=== PATIENT | female | born 1930 | race Caucasian/White ===

== ENCOUNTER 2018-02-25 16:23 | Inpatient (IN) | payer MEDICARE ==
[~2018-02-25] VITALS: Ht 165.1 cm; Wt 58.8 kg
[~2018-02-25 16:23] MED LIST: ALEN70TA47 PO; ASPI-1005 PO; CALC1TAB15 PO; CHOL400T33 PO; LEVO125T11 PO; LEVO500T2 PO; PANT20TA12 PO; SOLI5 PO
[2018-02-25 16:48] LABS: BASOPHILS % (AUTO) 0.7 % (0.0-5.0); EOSINOPHILS % (AUTO) 0.5 % (0.0-8.0); HEMATOCRIT 40.2 % (36-48); LYMPHOCYTES % (AUTO) 13.5 % (21.0-51.0); MEAN CORPUSCULAR HEMOGLOBIN 24.6 pg (27.0-33.0); MEAN CORPUSCULAR HGB CONC 30.6 g/dL (32.0-36.0); MEAN CORPUSCULAR VOLUME 80.2 fL (79-99); MONOCYTES % (AUTO) 8.8 % (3.0-13.0); NEUTROPHILS % (AUTO) 76.5 % (40.0-77.0); NUCLEATED RED BLOOD CELLS 0.1 % (0.0-0.19); PLATELET COUNT (AUTO) 295 K/uL (130-400); RED BLOOD CELL COUNT(AUTO) 5.01 MIL/uL (4.00-5.50); RED CELL DISTRIBUTION WIDTH 18.9 % (11.0-15.5); WHITE BLOOD COUNT (AUTO) 11.1 K/uL (4.8-10.8)
[2018-02-25] MEDS ORDERED: SODIUM CHLORIDE 0.9% 100 ML IV ONE (16:51)
[2018-02-25] MEDS ORDERED: AMIODARONE HCL 50 MG/ML 3 ML VIAL ONE (16:51)
[2018-02-25] MEDS ORDERED: SODIUM CHLORIDE 0.9% 500ML 500 ML IV ONE (16:51)
[2018-02-25 16:58] LABS: CREATININE 1.6 mg/dL (0.5-1.5); POTASSIUM 3.6 mmol/L (3.5-5.1)
[2018-02-25 17:01] LABS: INR 1.23 (0.85-1.15); PARTIAL THROMBOPLASTIN TIME 31.7 SEC (26.3-35.5); PROTHROMBIN TIME 12.9 SEC (9.6-11.6)
[2018-02-25 17:12] LABS: ALBUMIN 2.4 g/dL (3.5-5.0); BILIRUBIN,TOTAL 0.6 mg/dL (0.2-1.0); CREATINE KINASE MB 0.9 ng/mL (0.5-3.6); TOTAL PROTEIN, SERUM 6.6 g/dL (6.0-8.3)
[2018-02-25 17:45] LABS: APPEARANCE,URINE CLEAR (CLEAR); BILIRUBIN,URINE SMALL (NEGATIVE); COLOR,URINE YELLOW (YELLOW); GLUCOSE, URINE (UA) NEGATIVE (NEGATIVE); KETONES,URINE 5 mg/dL (NEGATIVE); LEUKOCYTE ESTERASE ,URINE TRACE (NEGATIVE); NITRATE,URINE POSITIVE (NEGATIVE); OCCULT BLOOD,URINE NEGATIVE (NEGATIVE); PROTEIN,URINE TRACE (NEGATIVE)
[2018-02-25 17:54] LABS: AMPHET/METH SCREEN,URINE NEGATIVE (NEGATIVE); BARBITURATE SCREEN, URINE NEGATIVE (NEGATIVE); BENZODIAZEPINES SCREEN,URINE NEGATIVE (NEGATIVE); CANNABINOID SCREEN,URINE NEGATIVE (NEGATIVE); COCAINE SCREEN,URINE NEGATIVE (NEGATIVE); OPIATE SCREEN,URINE NEGATIVE (NEGATIVE); PHENCYCLIDINE SCREEN,URINE NEGATIVE (NEGATIVE)
[2018-02-25 18:21] LABS: RBC,URINE None Seen /HPF (0-1)
[2018-02-25 18:22] LABS: BACTERIA,URINE Rare /HPF (None Seen); SQUAMOUS EPITHELIAL CELL,UR None Seen /HPF (0-2)
[2018-02-25] MEDS ORDERED: TETANUS/DIPHTHERIA TOXOID [ADULT] 0.5 ML VIAL IM ONE (18:31)
[2018-02-25] MEDS ORDERED: LEVOFLOXACIN 500 MG/D5W 100 ML 100 ML ONE (18:35)
[2018-02-25] MEDS ORDERED: SODIUM CHLORIDE 0.9% 50 ML IV ONE (18:35)
[2018-02-25] MEDS ORDERED: CEFTRIAXONE SODIUM 1 GM ONE (18:35)
[2018-02-25] MEDS ORDERED: AMIODARONE HCL 150 MG in DEXTROSE 5%-WATER 100 ML IV SCH (20:48)
[2018-02-25] MEDS ORDERED: AMIODARONE HCL 900 MG in DEXTROSE 5%-WATER 500 ML IV NR (21:00)
[2018-02-25] MEDS ORDERED: APIXABAN 5 MG TABLET PO SCH (21:00)
[2018-02-25 23:40] VITALS: BP 135/77
[2018-02-25] MEDS ORDERED: LABETALOL HCL 100 MG TABLET ONE (23:42)
[2018-02-25] MEDS: SODIUM CHLORIDE 0.9% 1000ML 1,000 ML IV SCH (23:45)
[2018-02-25] MEDS ORDERED: PHARMACY COMMUNICATION MISC SCH (23:45)
[2018-02-26] MEDS: ZOSYN 3.375GM+NS 50ML 50 ML IV SCH ×3 (00:41→23:23)
[2018-02-26] MEDS ORDERED: LABETALOL 20 MG/4 ML DISP.SYRIN IV PRN (01:00)
[2018-02-26] MEDS ORDERED: LABETALOL HCL 5 MG/ML 20ML VIAL IV ONE (01:07)
[2018-02-26 03:18] VITALS: BP 99/59
[2018-02-26 03:47] LABS: BASOPHILS % (AUTO) 0.4 % (0.0-5.0); EOSINOPHILS % (AUTO) 4.8 % (0.0-8.0); HEMATOCRIT 34.6 % (36-48); LYMPHOCYTES % (AUTO) 9.6 % (21.0-51.0); MEAN CORPUSCULAR VOLUME 80.5 fL (79-99); MONOCYTES % (AUTO) 7.2 % (3.0-13.0); PLATELET COUNT (AUTO) 248 K/uL (130-400); RED CELL DISTRIBUTION WIDTH 18.8 % (11.0-15.5); WHITE BLOOD COUNT (AUTO) 11.4 K/uL (4.8-10.8)
[2018-02-26 04:17] LABS: ALBUMIN 1.8 g/dL (3.5-5.0); BILIRUBIN,TOTAL 0.4 mg/dL (0.2-1.0); CREATININE 1.3 mg/dL (0.5-1.5); POTASSIUM 3.7 mmol/L (3.5-5.1); TOTAL PROTEIN, SERUM 5.4 g/dL (6.0-8.3)
[2018-02-26 04:49] LABS: HIGH SENSITIVITY CRP 63.25 mg/L (0.0-3.0)
[2018-02-26] MEDS: LEVOTHYROXINE 125 MCG TABLET PO SCH (06:30)
[2018-02-26] MEDS: PANTOPRAZOLE SODIUM 40 MG TABLET.DR PO SCH (06:37)
[2018-02-26 07:17] VITALS: BP 119/68
[2018-02-26] MEDS: CALCIUM CARBON 500MG CHEW TAB PO SCH (09:00)
[2018-02-26] MEDS: SOLIFENACIN SUCCINATE 5 MG PO SCH (09:00)
[2018-02-26] MEDS: FAMOTIDINE/PF 20 MG/2 ML VIAL IV SCH (09:53)
[2018-02-26] MEDS: SODIUM CHLORIDE 0.9% 1000ML 1,000 ML IV SCH (09:53)
[2018-02-26] MEDS: TRIAMCINOLONE ACETONIDE 0.1% CREAM 15GM TP SCH ×2 (09:55→21:29)
[2018-02-26 12:00] VITALS: BP 128/69
[2018-02-26] MEDS: 1/2 NORMAL SALINE 1,000 ML IV SCH (12:57)
[2018-02-26] MEDS: CLINDAMYCIN 900 MG/D5% WATER 50 ML IV SCH ×2 (14:06→21:29)
[2018-02-26] MEDS: AMIODARONE HCL 200 MG TABLET PO SCH ×2 (14:12→23:18)
[2018-02-26] MEDS: APIXABAN 2.5 MG TABLET PO SCH ×2 (14:13→23:26)
[2018-02-26 16:00] VITALS: BP 116/67
[2018-02-26 19:26] VITALS: BP 129/58
[2018-02-26 23:27] VITALS: BP 110/60
[2018-02-27] MEDS: CLINDAMYCIN 900 MG/D5% WATER 50 ML IV SCH ×4 (01:46→20:29)
[2018-02-27 04:02] VITALS: BP 120/60
[2018-02-27] MEDS: PANTOPRAZOLE SODIUM 40 MG TABLET.DR PO SCH (06:24)
[2018-02-27] MEDS: LEVOTHYROXINE 125 MCG TABLET PO SCH (06:24)
[2018-02-27] MEDS: 1/2 NORMAL SALINE 1,000 ML IV SCH ×2 (06:25→15:40)
[2018-02-27 07:22] VITALS: BP 132/71
[2018-02-27 09:32] LABS: BASOPHILS % (AUTO) 0.5 % (0.0-5.0); EOSINOPHILS % (AUTO) 2.9 % (0.0-8.0); HEMATOCRIT 36.9 % (36-48); LYMPHOCYTES % (AUTO) 10.3 % (21.0-51.0); MEAN CORPUSCULAR HEMOGLOBIN 24.8 pg (27.0-33.0); MEAN CORPUSCULAR HGB CONC 30.8 g/dL (32.0-36.0); MEAN CORPUSCULAR VOLUME 80.5 fL (79-99); MONOCYTES % (AUTO) 9.2 % (3.0-13.0); NEUTROPHILS % (AUTO) 77.1 % (40.0-77.0); PLATELET COUNT (AUTO) 271 K/uL (130-400); RED BLOOD CELL COUNT(AUTO) 4.59 MIL/uL (4.00-5.50); RED CELL DISTRIBUTION WIDTH 19.3 % (11.0-15.5); WHITE BLOOD COUNT (AUTO) 7.8 K/uL (4.8-10.8)
[2018-02-27 09:39] LABS: CREATININE 1.6 mg/dL (0.5-1.5); POTASSIUM 3.6 mmol/L (3.5-5.1)
[2018-02-27] MEDS: CALCIUM CARBON 500MG CHEW TAB PO SCH (09:54)
[2018-02-27] MEDS: FAMOTIDINE/PF 20 MG/2 ML VIAL IV SCH (09:54)
[2018-02-27] MEDS: TRIAMCINOLONE ACETONIDE 0.1% CREAM 15GM TP SCH ×2 (09:54→20:29)
[2018-02-27] MEDS: AMIODARONE HCL 200 MG TABLET PO SCH (09:54)
[2018-02-27] MEDS: APIXABAN 2.5 MG TABLET PO SCH ×2 (09:54→20:29)
[2018-02-27] MEDS: SOLIFENACIN SUCCINATE 5 MG PO SCH (09:55)
[2018-02-27 11:47] VITALS: BP 124/69
[2018-02-27] MEDS: ZOSYN 3.375GM+NS 50ML 50 ML IV SCH (12:10)
[2018-02-27 16:14] VITALS: BP 126/74
[2018-02-27 19:35] VITALS: BP 128/76
[2018-02-27 23:35] VITALS: BP 103/58
[2018-02-28] MEDS: ZOSYN 3.375GM+NS 50ML 50 ML IV SCH ×3 (01:11→19:45)
[2018-02-28] MEDS: CLINDAMYCIN 900 MG/D5% WATER 50 ML IV SCH ×5 (01:14→23:11)
[2018-02-28 03:10] VITALS: BP 129/59
[2018-02-28] MEDS: LEVOTHYROXINE 125 MCG TABLET PO SCH (06:22)
[2018-02-28] MEDS: PANTOPRAZOLE SODIUM 40 MG TABLET.DR PO SCH (06:25)
[2018-02-28 06:26] LABS: CREATININE 1.6 mg/dL (0.5-1.5)
[2018-02-28 07:30] VITALS: BP 117/63
[2018-02-28] MEDS: AMIODARONE HCL 200 MG TABLET PO SCH (10:42)
[2018-02-28] MEDS: CALCIUM CARBON 500MG CHEW TAB PO SCH (10:42)
[2018-02-28] MEDS: APIXABAN 2.5 MG TABLET PO SCH ×2 (10:42→19:44)
[2018-02-28] MEDS: FAMOTIDINE/PF 20 MG/2 ML VIAL IV SCH (10:42)
[2018-02-28] MEDS: SOLIFENACIN SUCCINATE 5 MG PO SCH (10:47)
[2018-02-28] MEDS: TRIAMCINOLONE ACETONIDE 0.1% CREAM 15GM TP SCH ×2 (10:48→19:45)
[2018-02-28] MEDS ORDERED: DEXTROSE 5% IV SCH (11:00)
[2018-02-28] MEDS ORDERED: SYRING IV SCH (11:00)
[2018-02-28] MEDS ORDERED: SODIUM BICARB 8.4% IV SCH (11:00)
[2018-02-28] MEDS ORDERED: WATER IV SCH (11:00)
[2018-02-28 11:22] VITALS: BP 123/60
[2018-02-28] MEDS: CLOTRIMAZOLE 10 MG TROCHE MM SCH ×4 (12:52→23:12)
[2018-02-28 15:29] VITALS: BP 112/58
[2018-02-28 19:00] VITALS: BP 117/80
[2018-02-28 23:18] VITALS: BP 128/62
[2018-03-01 03:16] VITALS: BP 130/60
[2018-03-01 04:05] LABS: BASOPHILS % (AUTO) 0.7 % (0.0-5.0); EOSINOPHILS % (AUTO) 5.2 % (0.0-8.0); HEMATOCRIT 34.5 % (36-48); LYMPHOCYTES % (AUTO) 14.6 % (21.0-51.0); MEAN CORPUSCULAR HEMOGLOBIN 25.4 pg (27.0-33.0); MEAN CORPUSCULAR HGB CONC 32.8 g/dL (32.0-36.0); MEAN CORPUSCULAR VOLUME 77.3 fL (79-99); MONOCYTES % (AUTO) 10.3 % (3.0-13.0); NEUTROPHILS % (AUTO) 69.2 % (40.0-77.0); PLATELET COUNT (AUTO) 268 K/uL (130-400); RED BLOOD CELL COUNT(AUTO) 4.47 MIL/uL (4.00-5.50); RED CELL DISTRIBUTION WIDTH 18.8 % (11.0-15.5)
[2018-03-01 04:24] LABS: ALBUMIN 1.9 g/dL (3.5-5.0); BILIRUBIN,DIRECT 0.2 mg/dL (0.0-0.3); BILIRUBIN,TOTAL 0.5 mg/dL (0.2-1.0); CREATININE 1.3 mg/dL (0.5-1.5); MAGNESIUM 1.7 mg/dL (1.80-2.40); POTASSIUM 3.3 mmol/L (3.5-5.1); TOTAL PROTEIN, SERUM 5.8 g/dL (6.0-8.3)
[2018-03-01] MEDS: CLINDAMYCIN 900 MG/D5% WATER 50 ML IV SCH ×2 (05:10→10:50)
[2018-03-01] MEDS: LEVOTHYROXINE 125 MCG TABLET PO SCH (06:08)
[2018-03-01] MEDS: CLOTRIMAZOLE 10 MG TROCHE MM SCH ×3 (07:00→15:00)
[2018-03-01 07:27] VITALS: BP 128/64
[2018-03-01] MEDS: SOLIFENACIN SUCCINATE 5 MG PO SCH (09:00)
[2018-03-01] MEDS: ZOSYN 3.375GM+NS 50ML 50 ML IV SCH (09:00)
[2018-03-01] MEDS: APIXABAN 2.5 MG TABLET PO SCH (09:00)
[2018-03-01] MEDS: TRIAMCINOLONE ACETONIDE 0.1% CREAM 15GM TP SCH (09:00)
[2018-03-01] MEDS: CALCIUM CARBON 500MG CHEW TAB PO SCH (09:00)
[2018-03-01] MEDS ORDERED: APIX2.5T PO (10:35)
[2018-03-01] MEDS ORDERED: AMIO200T44 PO (10:35)
[2018-03-01] MEDS ORDERED: Clotrimazole MM (10:35)
[2018-03-01] MEDS ORDERED: FAMOTIDINE 20MG TAB 20 MG TAB ONE (10:47)
[2018-03-01] MEDS: AMIODARONE HCL 200 MG TABLET PO SCH (10:51)
[2018-03-01 11:44] VITALS: BP 120/56
[2018-03-01 16:00] VITALS: BP 116/58
[2018-03-02] MEDS ORDERED: FAMOTIDINE 20MG TAB 20 MG TAB PO SCH (09:00)
== END 2018-03-01 16:45 | disposition expired | DRG 872 ==
LOC: EDH 16:23 → EDHIP 19:34 → 3BH 20:43 → 2AH 21:40
PROVIDERS: ADMIT Hospitalist; ATTEND Hospitalist
PROC: 3E0234Z Introduction of Serum, Toxoid and Vaccine into Muscle, Percutaneous Approach (ICD-10-PCS; principal; 2018-02-25)
DX: A41.9 Sepsis, unspecified organism (principal); L03.115 Cellulitis of right lower limb; N17.9 Acute kidney failure, unspecified; E44.0 Moderate protein-calorie malnutrition; E87.0 Hyperosmolality and hypernatremia; J90 Pleural effusion, not elsewhere classified; E03.9 Hypothyroidism, unspecified; I48.0 Paroxysmal atrial fibrillation; Z68.21 Body mass index [BMI] 21.0-21.9, adult; B37.9 Candidiasis, unspecified; F03.90 Unspecified dementia, unspecified severity, without behavioral disturbance, psychotic disturbance, mood disturbance, and anxiety; I12.9 Hypertensive chronic kidney disease with stage 1 through stage 4 chronic kidney disease, or unspecified chronic kidney disease; I34.0 Nonrheumatic mitral (valve) insufficiency; N18.3 Chronic kidney disease, stage 3 (moderate); R53.81 Other malaise; Z79.01 Long term (current) use of anticoagulants; Z86.718 Personal history of other venous thrombosis and embolism; Z86.73 Personal history of transient ischemic attack (TIA), and cerebral infarction without residual deficits; Z23 Encounter for immunization
CPT/HCPCS: 36415; 70450; 71045; 80048; 80053; 80061; 80076; 80305; 81001; 82270; 82550; 82553; 82948; 83605; 83735; 83880; 84443; 84484; 85025; 85610; 85730; 86141; 87040; 87070; 87076; 87077; 87088; 87186; 90714; 92610; 93005; 93306; 97039; 99291; A6454; J0282; J0696; J1956; J2543; J3490; J7030; J7040; J7060; J7070; Q2038

== ENCOUNTER 2018-03-01 18:45 | Emergency (ER) | payer MEDICARE ==
[~2018-03-01 18:45] MED LIST changes: +AMIO200T44 PO; +APIX2.5T PO; +Clotrimazole MM; +EPINEPHRINE 0.1 MG/ML 10 ML SYG IVP ONE; +SODIUM BICARB 8.4% 50ML SYRINGE IVP ONE
== END 2018-03-01 21:54 | disposition expired ==
LOC: EDH 18:45
DX: I46.9 Cardiac arrest, cause unspecified (principal); I10 Essential (primary) hypertension; E07.9 Disorder of thyroid, unspecified; Z86.73 Personal history of transient ischemic attack (TIA), and cerebral infarction without residual deficits; Z85.038 Personal history of other malignant neoplasm of large intestine; Z98.890 Other specified postprocedural states
CPT/HCPCS: 82948; 92950; 99291; J0171; J3490